=== PATIENT | female | born 1980 | race Caucasian/White ===

== ENCOUNTER 2021-09-24 20:07 | Emergency (ER) | payer OTHER ==
[~2021-09-24] VITALS: Ht 167.6 cm; Wt 106.6 kg
[2021-09-24] MEDS ORDERED: VENTOLIN HFA INH8 GM INH (20:23)
[2021-09-24] MEDS ORDERED: SUPER THERAVIT1 EACH PO (20:23)
[2021-09-24] MEDS ORDERED: SPIRONOLACTONE50 MG PO (20:23)
[2021-09-24 21:17] VITALS: BP 154/67
== END 2021-09-24 21:17 | disposition home or self-care (01) ==
LOC: ER 20:07
DX: S61.210A Laceration without foreign body of right index finger without damage to nail, initial encounter (principal); F41.9 Anxiety disorder, unspecified; J45.909 Unspecified asthma, uncomplicated; I10 Essential (primary) hypertension; Z79.51 Long term (current) use of inhaled steroids; Z79.899 Other long term (current) drug therapy; Z91.041 Radiographic dye allergy status; W26.8XXA Contact with other sharp object(s), not elsewhere classified, initial encounter; Y93.89 Activity, other specified; Y92.89 Other specified places as the place of occurrence of the external cause; Y99.8 Other external cause status